=== PATIENT | male | born 1965 | race Caucasian/White ===

== ENCOUNTER 2021-12-18 09:46 | Emergency (ER) | payer OTHER ==
[2021-12-18 10:32] LABS: BASOPHIL 0.3 % (0-2); EOSINOPHIL 0.6 % (0-5); HCT 39.8 % (42.0-52.0); HGB 13.6 g/dl (13.2-18.0); LYMPHOCYTE 15.6 % (15-48); MCH 30.6 pg (25.0-31.0); MCHC 34.2 g/dL (32.0-36.0); MCV 89.6 fL (78.0-100.0); MONOCYTE 5.5 % (0-12); MPV 10.8 fL (6.0-9.5); NEUTROPHIL 77.8 % (41-80); NRBC 0; PLT 164 K/uL (150-400); RBC 4.44 M/uL (4.70-6.00); RDW 13.5 % (11.5-14.0); WBC 10.3 K/uL (4.0-10.5)
[2021-12-18 11:02] LABS: ALBUMIN 3.7 g/dL (3.4-5.0); ALKALINE PHOSHATASE 100 U/L (46-116); ALT 65 U/L (16-63); AST 63 U/L (15-37); BILIRUBIN - TOTAL 1.6 mg/dL (0.2-1.0); BUN 21 mg/dL (7-18); BUN/CREAT RATIO (CALC) 22.3 RATIO; CHLORIDE 96 mmol/L (98-107); CO2 (BICARBONATE) 26 mmol/L (21-32); CREATININE 0.94 mg/dL (0.67-1.17); GLOBULIN (CALCULATION) 3.4 g/dL; GLUCOSE 105 mg/dL (74-106); POTASSIUM 3.5 mmol/L (3.5-5.1); TOTAL PROTEIN 7.1 g/dL (6.4-8.2)
[2021-12-18 11:05] LABS: BILIRUBIN NEGATIVE (NEGATIVE); BLOOD NEGATIVE Ery/uL (NEGATIVE); CLARITY CLEAR (CLEAR); COLOR YELLOW (YELLOW); GLUCOSE (U) NORMAL (NORMAL); LEUKOCYTES NEGATIVE Leu/uL (NEGATIVE); NITRITE NEGATIVE (NEGATIVE); PROTEIN TRACE (LOW) mg/dL (NEGATIVE); SPECIFIC GRAVITY 1.015 (1.001-1.030)
[2021-12-18 11:12] LABS: AMPHETAMINES NEGATIVE (NEGATIVE); BARBITURATES NEGATIVE (NEGATIVE); ECSTASY (MDMA) NEGATIVE (NEGATIVE); MARIJUANA (THC) NEGATIVE (NEGATIVE); METHADONE NEGATIVE (NEGATIVE); OPIATES NEGATIVE (NEGATIVE); OXYCODONE NEGATIVE (NEGATIVE)
[2021-12-18 11:19] LABS: SQUAMOUS EPITHELIAL CELLS >50; URINARY RBC RARE; URINARY WBC RARE
== END 2021-12-18 13:00 | disposition home or self-care (01) ==
LOC: FER 09:46
PROVIDERS: Emergency Medicine
DX: I95.1 Orthostatic hypotension (principal); R74.8 Abnormal levels of other serum enzymes
CPT/HCPCS: 36415; 71045; 80053; 80305; 81001; 82140; 84145; 85025; 93005; G0480; J7030